=== PATIENT | female | born 1970 | race Caucasian/White ===

== ENCOUNTER 2017-12-04 14:33 | Emergency (ER) | payer OTHER ==
[~2017-12-04] VITALS: Ht 162.6 cm; Wt 109.1 kg
[2017-12-04] MEDS ORDERED: METF-514 PO (15:46)
[2017-12-04 15:58] LABS: GLUCOSE,POINT OF CARE 117 MG/DL (70-110)
[2017-12-04] MEDS ORDERED: CYCLOBENZAPRINE HCL 10 MG TABLET PO ONE (17:15)
[2017-12-04] MEDS ORDERED: KETOROLAC TROMETHAMINE 60 MG/2 ML VIAL IM ONE (17:15)
[2017-12-04 18:44] VITALS: BP 124/64
== END 2017-12-04 18:50 | disposition home or self-care (01) ==
LOC: EMS 14:35
DX: M25.562 Pain in left knee (principal); M25.552 Pain in left hip; M54.2 Cervicalgia; I10 Essential (primary) hypertension; Z79.4 Long term (current) use of insulin; W18.39XA Other fall on same level, initial encounter; Y93.89 Activity, other specified; Y92.89 Other specified places as the place of occurrence of the external cause; Y99.8 Other external cause status
CPT/HCPCS: 73503; 73562; 82962; 96372; 99284; J1885